=== PATIENT | female | born 1950 | race Caucasian/White ===

== ENCOUNTER 2024-07-11 17:31 | Emergency (ER) | payer MEDICARE, SELFPAY ==
--- NOTE | ~2024-07-11 | CT_ITS ---
CT chest abdomen pelvis w con Ordering provider: Lou Jamil PA-C History: 74 years Female with . fevers unknown origin, hematuria . Comparison: None. Technique: CT chest with IV contrast. CT abdomen and pelvis CT abdomen and pelvis with IV and with or al contrast. Radiation reduction technique utilized The dose-length product was 643.48 mGy-cm. 100 mL Omnipaque 350 was given IV. FINDINGS: CHEST: --VISUALIZED THORACIC INLET: Nodule in the right lobe of the thyroid. Ultrasound evaluation advised. --MEDIASTINUM: Aorta/coronary arteries: Mild atheromatous disease. Heart/other: The heart is slightly enlarged. Lymph nodes: No mediastinal or hilar adenopathy. Multiple small lymph nodes are seen in the mediastin um. --LUNGS: Atelectatic changes in the lung bases. Cough, No pulmonary masses. No infiltrates or effusio ns. No pneumothorax. Tiny nodule is seen in the left lower lobe measuring 3 mm. --MUSCULOSKELETAL: Soft tissues: The superficial soft tissues are normal. Bones: Age appropriate degenerative changes of the spine. No suspicious bony lytic or sclerotic lesio ns. ABDOMEN/PELVIS: --MUSCULOSKELETAL: Bones: Levoscoliosis. Age appropriate degenerative changes of the spine. No suspicious bony lytic or sclerotic lesions. Superficial soft tissues: The superficial soft tissues are normal. --UPPER ABDOMINAL ORGANS: Liver: Normal. Gallbladder: Normal. Spleen: Normal. Stomach/duodenum: Small sliding hiatus hernia. Pancreas: Normal. Adrenals: Nodule in the medial limb of the left adrenal gland. No follow-up is advised unless clinica lly warranted. Kidneys: Tiny cyst in the right kidney upper pole. --PELVIC ORGANS: The bladder is underfilled with slightly thickened wall. No bladder stones. Device is seen in the vagina. Cystic area seen in the right side of the pelvis suggestive of ovarian cyst wh ich measures 2.3 cm. --BOWEL AND MESENTERY: Colon: No evidence of diverticulitis.. Fecal material seen in the colon. Normal appendix. Small Bowel: Normal. No obstruction. Peritoneum/mesentery: No free air or free fluid. No mesenteric lymphadenopathy. Small para-aortic lym ph nodes. --RETROPERITONEUM: Mild atheromatous disease of the abdominal aorta. No retroperitoneal lymphadenop athy. IMPRESSION: CHEST: 1. No acute cardiopulmonary pathology. 2. Nodule in the right lobe of the thyroid. Ultrasound evaluation advised. 3. Tiny nodule in the left lower lobe measuring 3 mm. 6-12 months follow-up advised. ABDOMEN/PELVIS: 1. Small sliding hiatus hernia. 2. Nodule in the right limb of the adrenal gland. No follow-up advised unless clinically warranted. 3. Constipation. Reviewed, dictated and finalized at location A. IMPRESSION: CHEST: 1. No acute cardiopulmonary pathology. 2. Nodule in the right lobe of the thyroid. Ultrasound evaluation advised. 3. Tiny nodule in the left lower lobe measuring 3 mm. 6-12 months follow-up ad vised. ABDOMEN/PELVIS: 1. Small sliding hiatus hernia. 2. Nodule in the right limb of the adrenal gland. No follow-up advised unless clinically warranted. 3. Constipation.
--- NOTE | ~2024-07-11 | CT_ITS ---
CT brain wo con Ordering provider: Lou Jamil PA-C History: 74 years Female with . has, fevers . Comparison: None. Technique: CT of the head without contrast. Radiation reduction technique utilized The dose-length product was 605.33 mGy-cm. FINDINGS: BRAIN PARENCHYMA AND CSF SPACES: Mild leukoaraiosis and diffuse cortical atrophy. Mild atheromatous d isease. No midline shift, mass effect or hemorrhage. The brain parenchyma and CSF spaces are otherwi se normal. VISUALIZED PARANASAL SINUSES: Well aerated. MASTOIDS: Well aerated. BONES: The bones appear intact. Definite C1 posterior arch. SOFT TISSUES: Visualized nasopharynx is normal. Superficial soft tissues are normal. IMPRESSION: No acute intracranial findings. Reviewed, dictated and finalized at location A.
--- NOTE | ~2024-07-11 | CT_ITS ---
CTA brain carotid Ordering provider: Lou Jamil PA-C History: . recent endarterectomy, fever X7d . Comparison: None. Technique: CT angiogram head and neck was performed following timed intravenous injection of contrast . Thin slice axial images and reformatted coronal images were obtained. Three dimensional reformatted images of the brain were also obtained using a [employer] workstation. Radiation reduction technique ut ilized The dose-length product was 966.15 mGy-cm. FINDINGS: HEAD: --ANTERIOR AND MIDDLE CEREBRAL ARTERIES AND BRANCHES: Normal caliber and contour. --INTERNAL CAROTID ARTERIES: Mild atheromatous disease but no significant stenosis. No occlusion. --BASILAR ARTERY AND BRANCHES: Normal caliber and contour. No atheromatous disease. --POSTERIOR CEREBRAL ARTERIES: Normal caliber and contour --POSTERIOR COMMUNICATING ARTERIES: Both visualized and continues as posterior cerebral arteries. --ANEURYSM: Irregularity in the junction of the A1 segment with the M1 segment and the carotid artery is noted on an aneurysm in the area cannot be excluded. Further evaluation with angiography is advis ed. --BRAIN: Please refer to report of CT head performed the same day. --BONES AND SUPERFICIAL SOFT TISSUES: Please refer to report of CT head performed the same day. --PARANASAL SINUSES AND MASTOIDS: Please refer to report of CT head done the same day. NECK: --RIGHT CERVICAL CAROTID SYSTEM: Normal caliber and contour. Percent stenosis per NASCET criteria is 0%. No carotid dissection. Otherwise, no significant atheromatous disease or stenosis of the cervica l carotid system. --LEFT CERVICAL CAROTID SYSTEM: Mild atheromatous disease of the carotid bulb and proximal internal c arotid artery without significant stenosis. Percent stenosis per NASCET criteria is 30%. No carotid dissection. Otherwise, no significant atheromatous disease or stenosis of the cervical carotid system. --VERTEBRAL ARTERIES: Dominant left vertebral artery otherwise, normal Normal caliber and contour. --VISUALIZED AORTIC ARCH AND BRANCHING VESSELS: Mild atheromatous disease but no significant stenosis . --SOFT TISSUES: Bilateral thyroid nodules with enlargement. Ultrasound evaluation advised. --CERVICAL SPINE: Age appropriate degenerative changes. IMPRESSION: 1. Irregularity at the junction of the right carotid artery with the M1 segment and A1 segment which may indicate an aneurysm. Further evaluation advised. 2. CTA neck. Percent stenosis per NASCET criteria is 30% on the left side. 3. Dominant left vertebral artery. Reviewed, dictated and finalized at location A. IMPRESSION: 1. Irregularity at the junction of the right carotid artery with the M1 segmen t and A1 segment which may indicate an aneurysm. Further evaluation advised. 2. CTA neck. Percent stenosis per NASCET criteria is 30% on the left side. 3. Dominant left vertebral artery.
[2024-07-11 17:51] VITALS: BP 146/131; PULSE 95; RESP 14; O2SAT 97
[2024-07-11 17:53] VITALS: BP 152/70; PULSE 97; RESP 20; TEMP 37.4; O2SAT 97
[2024-07-11 18:35] VITALS: BP 152/70; PULSE 92; RESP 16; O2SAT 94
[2024-07-11 18:44] LABS: Basophils Percent Auto 0.4 % (0.2-1.2); Eosinophils Absolute Auto 0.1 K/mm3 (0-0.3); Hemoglobin 12.9 g/dL (12.0-15.0); Immature Granulocyte Absolute 0.03 K/mm3 (0.00-0.031); Immature Granulocyte Percent A 0.4 % (0-0.5); Lymphocytes Absolute Auto 0.92 K/mm3 (0.9-3.2); Mean Corpuscular HGB Conc 32.3 g/dl (32-36); Mean Corpuscular Hemoglobin 28.7 pg (26-34); Mean Corpuscular Volume 89.1 fl (80-100); Mean Platelet Volume 11.5 fl (7.4-10.4); Monocytes Absolute Auto 0.7 K/mm3 (0.1-0.6); Monocytes Percent Auto 8.7 % (2.6-8.5); Neutrophils Absolute Auto 5.9 K/mm3 (1.3-6.7); Neutrophils Percent Auto 77.5 % (45.5-73.1); Platelet Count Result 225 k/mm3 (150-375); Red Blood Count 4.49 M/mm3 (4.2-5.4); Red Cell Distribution Width 14.4 % (11.5-14.5); White Blood Count 7.7 K/mm3 (4.5-10.0)
[2024-07-11 18:55] LABS: Alanine Aminotransferase 31 U/L (6-35); Albumin Level 4.2 g/dL (3.5-5.1); Alkaline Phosphatase 149 U/L (38-126); Anion Gap 8 mmol/L (4-12); Aspartate Amino Transferase 41 U/L (14-36); Bilirubin,Total 0.7 mg/dL (0.2-1.3); Blood Urea Nitrogen 15 mg/dL (7-17); Calcium 9.4 mg/dL (8.4-10.2); Carbon Dioxide 27 mmol/L (22-30); Chloride 103 mmol/L (98-107); Estimated CRCL calculation 39 ml/min; Estimated Glomerular Filt Rate 54; Glucose 98 mg/dL (65-110); Sodium 138 mmol/L (137-145)
[2024-07-11] MEDS: ACETAMINOPHEN 500 MG TABLET 1000 MG PO (18:59)
[2024-07-11] MEDS: SODIUM CHLORIDE 0.9% IV 1,000 ML 999 ML IV CONT (18:59)
[2024-07-11 19:00] VITALS: BP 136/76; PULSE 102; RESP 23; TEMP 37.8; O2SAT 97
[2024-07-11 19:06] LABS: Add Urine Microscopic? YES; Appearance Urine Clear (Clear); Bacteria Urine None Seen /hpf; Bilirubin Urine Negative (Negative); Blood Urine Negative (Negative); Color Urine Yellow (Yellow); Glucose Urine UA Negative (Negative); Ketones Urine 1+ mg/dL (Negative); Leukocyte Esterase Ur Trace LEU/UL (Negative); Need Manual Microscopic Reviewed; Nitrate Urine Negative (Negative); Protein Urine 1+ mg/dL (Negative); Specific Grav Ur 1.026 (1.001-1.035); Squamous Epithelial Cell Urine Occasional /hpf (Few); WBC Urine 0-5 /hpf (0-3); pH Urine 5.5 (5.0-9.0)
[2024-07-11 19:18] LABS: CRP 8.9 mg/dL (<1.0)
[2024-07-11 19:21] LABS: Influenza A QL RT-PCR Negative (Negative); Influenza B QL RT-PCR Negative (Negative); RSV RNA, RT-PCR Negative (Negative); SARS-CoV-2 RNA PCR Negative (Negative)
--- NOTE | 2024-07-11 19:27 | ED_ITS ---
HPI - Fever General Chief Complaint: Fever <SHAHZAD Ramirez Last Filed: 07/12/24 02:39> Stated Complaint: sent by PCP for fevers <SHAHZAD Ramirez Last Filed: 07/12/24 02:39> Time Seen by Provider: 07/11/24 17:57 <SHAHZAD Ramirez Last Filed: 07/12/24 02:39> Source: patient <SHAHZAD Ramirez Last Filed: 07/12/24 02:39> Mode of arrival: ambulatory <SHAHZAD Ramirez Last Filed: 07/12/24 02:39> Limitations: no limitations <SHAHZAD Ramirez Last Filed: 07/12/24 02:39> History of Present Illness HPI Narrative: Patient is a 74-year-old female who presents the ED with report of fever. Patient reports she has been dealing with intermittent fever over the last 7 days, T-max 102? F. She has been seeing her primary care doctor for this and has had fairly extensive workup without a diagnosis. She reports she feels chills and body aches and mild dizziness when the fevers occur, but otherwise feels in her normal state of health. Has been taking ibuprofen mostly for the fevers. Does report intermittent headaches over the last few weeks, but denies having any headache since the fevers have started. Denies cough or cold symptoms, nausea, vomiting, diarrhea, chest pain, shortness of breath, abdominal pain, rashes, wounds, dysuria, gross hematuria. Patient's primary care doctor did recommend that she obtain a CT scan of her abdomen and pelvis to rule out a septic stone given that he had found microscopic blood in her urine of her urine sample in the office. Patient denies any abdominal or back/flank pain. Denies previous history of kidney stones. Also of note, patient had a R carotid endarterectomy on 06/[address] Rashad Tellez at [facility]. <SHAHZAD Ramirez Last Filed: 07/12/24 02:39> Related Data Allergies/Adverse Reactions: Allergies Allergy/AdvReac Type Severity Reaction Status Date / Time No Known Allergies Allergy Verified 07/11/24 17:32 <Lou Jamil PA-C - Last Filed: 07/12/24 02:39> Review of Systems Review of Systems: All systems reviewed & are unremarkable except as noted in HPI. <Lou Jamil PA-C - Last Filed: 07/12/24 02:39> All systems reviewed & are unremarkable except as noted in HPI and below <Lou Jamil PA-C - Last Filed: 07/12/24 02:39> Exam Narrative: GENERAL: Elderly but well appearing, well-nourished, non-toxic, in no acute distress. HEAD: Normocephalic, atraumatic. NECK: Supple, normal ROM, no meningeal signs. Incision to R lateral neck related to recent carotid endarterectomy, glue still in place. No evidence of dehiscence, induration, fluctuance. No drainage or surrounding erythema. RESPIRATORY: Airway patent, respirations nonlabored. Clear to auscultation bilat erally, no rales, rhonchi, wheezing. No focal lungs sounds. CARDIOVASCULAR: Borderline tachycardic with regular rhythm without murmurs, rubs, or gallops. ABDOMINAL: Soft, nontender, nondistended. Normoactive BS. MUSCULOSKELETAL: Moves all extremities. No gross deformities. No peripheral edema. SKIN: Warm, dry, normal color. No rashes or wounds. NEURO: A&O X3. Speech clear. Cranial nerves II-XII grossly intact. Steady gait. No ataxic movements. No focal deficits. PSYCHIATRIC: Appropriate mood and affect. Normal interaction. <Lou Jamil PA-C - Last Filed: 07/12/24 02:39> Course VACATION SALES ADVISOR/PA Physician Supervision Patient's HPI, Exam, and MDM were reviewed and I agreed with the workup and disposition done in the emergency department by the MLP. I was available f or consultation, after speaking with the MLP we did decide to order CT angiography of the head neck given her recent carotid endarterectomy and potential for an infectious process such as Lemmeier's syndrome to be causing her persistent fevers. This was negative and given patient's lack of white co unt or any fever here she was deemed stable for outpatient follow-up. Agree with remaining dictation by MLP. <Derrell Zeng MD - Last Filed: 07/12/24 06:47> Vital Signs Vital signs: Vital Signs Pulse Rate 95 07/11/24 17:51 Respiratory Rate 14 07/11/24 17:51 Blood Pressure 146/131 H 07/11/24 17:51 Pulse Oximetry 97 07/11/24 17:51 Temperature 36.6 C 07/11/24 22:53 Pulse Rate 92 07/11/24 22:53 Respiratory Rate 18 07/11/24 22:53 Blood Pressure 133/65 07/11/24 22:53 Pulse Oximetry 97 07/11/24 22:53 <Lou Jamil PA-C - Last Filed: 07/12/24 02:39> Vital Signs Pulse Rate 95 07/11/24 17:51 Respiratory Rate 14 07/11/24 17:51 Blood Pressure 146/131 H 07/11/24 17:51 Pulse Oximetry 97 07/11/24 17:51 Temperature 36.6 C 07/11/24 22:53 Pulse Rate 92 07/11/24 22:53 Respiratory Rate 18 07/11/24 22:53 Blood Pressure 133/65 07/11/24 22:53 Pulse Oximetry 97 07/11/24 22:53 <Derrell Zeng MD - Last Filed: 07/12/24 06:47> MDM - Fever MDM Narrative Medical decision making narrative: Patient presented to ED with 1 week history of fever, unknown origin. Denies significant associated symptoms. Has had outpatient workup with primary care doctor which has been mostly non revealing aside from a small amount of microscopic hematuria. Sent to the ED for further evaluation and to potentially rule out septic stone. Patient borderline tachycardic, tachypneic, febrile here. Given tylenol/fluids. Otherwise in no acute distress. She does not appear toxic on clinical exam. CBC is without leukocytosis. Stable H&H. CMP is fairly unremarkable. Creatinine appears stable. There is minimal elevation of AST and alk phos. No records to compare to. CRP is elevated to 8.9. ESR also mildly elevated to 53. UA with 1+ ketones, trace leuk esterase, 3-5 RBC. Viral swabs are negative. Barren negative. TSH WNL. Lactic acid is within normal range at 1.0. CT brain negative. CT chest/abdomen /pelvis obtained: CHEST: 1. No acute cardiopulmonary pathology. 2. Nodule in the right lobe of the thyroid. Ultrasound evaluation advised. 3. Tiny nodule in the left lower lobe measuring 3 mm. 6-12 months follow-up advised. ABDOMEN/PELVIS: 1. Small sliding hiatus hernia. 2. Nodule in the right limb of the adrenal gland. No follow-up advised unless clinically warranted. 3. Constipation. Overall workup non-revealing at this time /reassuring. I did discuss workup thus far with patient and at bedside. Patient is aware of thyroid nodule and has had previous workup for this. Will obtain CTA of the head and neck to rule out infection related to recent endarterectomy/ rule out potential Lemierre syndrome. CTA was obtained and does show irregularity at the junction of R ICA at M1A1 segment, potentially an aneurysm. There are no other significant abnormalities noted. No soft tissue abnormalities. No occlusion or thrombus identified to suggest Lemierre's. I did verify this with radiologist, Dr. Jannette Hanley. I did discuss this potential aneurysm finding with patient and advised that she may need further imaging as an outpatient, however this is not the cause of her current fevers. Again overall workup is nonrevealing. I discussed with patient the possibility of viral syndrome and discussed the numerous pa thologies that we have been able to rule out with today's workup. I have extremely low suspicion for intracranial pathology/infection, such as encephalitis or meningitis. Patient is neurologically intact. There are no focal deficits or meningeal signs appreciated on exam. There is no confusion. Again white blood cell count is normal. I discussed LP with patient, however I do not feel this is clinically indicated at this time. Would expect patient to be more acutely ill if this were the case. Patient would prefer to avoid LP. I feel patient is stable for discharge home at this time. She is not meeting sepsis criteria. She feels comfortable going home. I advised patient have extremely close follow-up with PCP for continued management and workup. She was given strict return precautions and voiced understanding of this. Discharged in stable condition. Vital signs stable at time of D/C. <ARMANDO Ramirez - Last Filed: 07/12/24 02:39> Medical Records Attestation: I reviewed the patient's medical records. <Lou Jamil PA-C - Last Filed: 07/12/24 02:39> Lab Data Attestation: I reviewed the patient's lab results. <Lou Jamil PA-C - Last Filed: 07/12/24 02:39> Result diagrams: 07/11/24 18:38 07/11/24 18:38 <Lou Jamil PA-C - Last Filed: 07/12/24 02:39> Labs: Lab Results 07/11/24 07/11/24 07/11/24 Range/Units 18:32 18:37 18:38 WBC 7.7 (4.5-10.0) K/mm3 RBC 4.49 (4.2-5.4) M/mm3 Hgb 12.9 (12.0-15.0) g/dL Hct 40.0 (37.0-47.0) % MCV 89.1 (80-100) fl MCH 28.7 (26-34) pg MCHC 32.3 (32-36) g/dl RDW 14.4 (11.5-14.5) % Plt Count 225 (150-375) k/mm3 MPV 11.5 H (7.4-10.4) fl Immature Gran % (Auto) 0.4 (0-0.5) % Neut % (Auto) 77.5 H (45.5-73.1) % Lymph % (Auto) 12.0 L (18.3-44.2) % Barren % (Auto) 8.7 H (2.6-8.5) % Eos % (Auto) 1.0 (0-4.4) % Baso % (Auto) 0.4 (0.2-1.2) % Lymph # (Auto) 0.92 (0.9-3.2) K/mm3 Barren # (Auto) 0.7 H (0.1-0.6) K/mm3 Eos # (Auto) 0.1 (0-0.3) K/mm3 Baso # (Auto) 0.0 (0.0-0.1) K/mm3 Abs Immat Gran (auto) 0.03 (0.00-0.031) K/mm3 Absolute Neuts (auto) 5.9 (1.3-6.7) K/mm3 Absolute Nucleated RBC 0.000 (0.0-0.012) K/mm3 Nucleated RBC % 0.0 (0.0-0.2) % ESR 53 H (0-20) mm/hr Sodium 138 (137-145) mmol/L Potassium 4.0 (3.4-5.0) mmol/L Chloride 103 (98-107) mmol/L Carbon Dioxide 27 (22-30) mmol/L Anion Gap 8 (4-12) mmol/L BUN 15 (7-17) mg/dL Creatinine 1.00 (0.7-1.0) mg/dL Estim Creat Clear Calc 39 ml/min Estimated GFR 54 L (59 - ) Glucose 98 (65-110) mg/dL Lactic Acid 1.0 (0.7-2.0) mmol/L Calcium 9.4 (8.4-10.2) mg/dL Total Bilirubin 0.7 (0.2-1.3) mg/dL AST 41 H (14-36) U/L ALT 31 (6-35) U/L Alkaline Phosphatase 149 H (38-126) U/L C-Reactive Protein 8.9 H (<1.0) mg/dL Total Protein 8.0 (6.3-8.2) g/dL Albumin 4.2 (3.5-5.1) g/dL TSH (Reflex) 1.100 (0.465-4.68) uIU/mL Urine Color (Yellow) Urine Appearance (Clear) Urine pH (5.0-9.0) Ur Specific [place] (1.001-1.035) Urine Protein (Negative) mg/dL Urine Glucose (UA) (Negative) mg/dL Urine Ketones (Negative) mg/dL Ur Blood (Man) (Negative) Urine Nitrate (Negative) Urine Bilirubin (Negative) Urine Urobilinogen (<2.0) mg/dL Add Ur Microanalysis Leukocyte Esterase Rfl (Negative) DIMITRIS/UL Urine RBC (0-2) /hpf Urine WBC (0-3) /hpf Ur Squamous Epith Cells (Few) /hpf Urine Bacteria /hpf Urine Casts Monoscreen (Negative) Influenza A (RT-PCR) Negative (Negative) Influenza B (RT-PCR) Negative (Negative) RSV (RT-PCR) Negative (Negative) SARS-CoV-2 RNA (RT-PCR) Negative (Negative) 07/11/24 07/11/24 Range/Units 18:41 21:36 WBC (4.5-10.0) K/mm3 RBC (4.2-5.4) M/mm3 Hgb (12.0-15.0) g/dL Hct (37.0-47.0) % MCV (80-100) fl MCH (26-34) pg MCHC (32-36) g/dl RDW (11.5-14.5) % Plt Count (150-375) k/mm3 MPV (7.4-10.4) fl Immature Gran % (Auto) (0-0.5) % Neut % (Auto) (45.5-73.1) % Lymph % (Auto) (18.3-44.2) % Barren % (Auto) (2.6-8.5) % Eos % (Auto) (0-4.4) % Baso % (Auto) (0.2-1.2) % Lymph # (Auto) (0.9-3.2) K/mm3 Barren # (Auto) (0.1-0.6) K/mm3 Eos # (Auto) (0-0.3) K/mm3 Baso # (Auto) (0.0-0.1) K/mm3 Abs Immat Gran (auto) (0.00-0.031) K/mm3 Absolute Neuts (auto) (1.3-6.7) K/mm3 Absolute Nucleated RBC (0.0-0.012) K/mm3 Nucleated RBC % (0.0-0.2) % ESR (0-20) mm/hr Sodium (137-145) mmol/L Potassium (3.4-5.0) mmol/L Chloride (98-107) mmol/L Carbon Dioxide (22-30) mmol/L Anion Gap (4-12) mmol/L BUN (7-17) mg/dL Creatinine (0.7-1.0) mg/dL Estim Creat Clear Calc ml/min Estimated GFR (59 - ) Glucose (65-110) mg/dL Lactic Acid (0.7-2.0) mmol/L Calcium (8.4-10.2) mg/dL Total Bilirubin (0.2-1.3) mg/dL AST (14-36) U/L ALT (6-35) U/L Alkaline Phosphatase (38-126) U/L C-Reactive Protein (<1.0) mg/dL Total Protein (6.3-8.2) g/dL Albumin (3.5-5.1) g/dL TSH (Reflex) (0.465-4.68) uIU/mL Urine Color Yellow (Yellow) Urine Appearance Clear (Clear) Urine pH 5.5 (5.0-9.0) Ur Specific [place] 1.026 (1.001-1.035) Urine Protein 1+ H (Negative) mg/dL Urine Glucose (UA) Negative (Negative) mg/dL Urine Ketones 1+ H (Negative) mg/dL Ur Blood (Man) Negative (Negative) Urine Nitrate Negative (Negative) Urine Bilirubin Negative (Negative) Urine Urobilinogen 1.0 (<2.0) mg/dL Add Ur Microanalysis Reviewed Leukocyte Esterase Rfl Trace H (Negative) DIMITRIS/UL Urine RBC 3-5 H (0-2) /hpf Urine WBC 0-5 (0-3) /hpf Ur Squamous Epith Cells Occasional (Few) /hpf Urine Bacteria None seen /hpf Urine Casts 6-10 Monoscreen Negative (Negative) Influenza A (RT-PCR) (Negative) Influenza B (RT-PCR) (Negative) RSV (RT-PCR) (Negative) SARS-CoV-2 RNA (RT-PCR) (Negative) <Lou Jamil PA-C - Last Filed: 07/12/24 02:39> Lab Results 07/11/24 07/11/24 07/11/24 Range/Units 18:32 18:37 18:38 WBC 7.7 (4.5-10.0) K/mm3 RBC 4.49 (4.2-5.4) M/mm3 Hgb 12.9 (12.0-15.0) g/dL Hct 40.0 (37.0-47.0) % MCV 89.1 (80-100) fl MCH 28.7 (26-34) pg MCHC 32.3 (32-36) g/dl RDW 14.4 (11.5-14.5) % Plt Count 225 (150-375) k/mm3 MPV 11.5 H (7.4-10.4) fl Immature Gran % (Auto) 0.4 (0-0.5) % Neut % (Auto) 77.5 H (45.5-73.1) % Lymph % (Auto) 12.0 L (18.3-44.2) % Barren % (Auto) 8.7 H (2.6-8.5) % Eos % (Auto) 1.0 (0-4.4) % Baso % (Auto) 0.4 (0.2-1.2) % Lymph # (Auto) 0.92 (0.9-3.2) K/mm3 Barren # (Auto) 0.7 H (0.1-0.6) K/mm3 Eos # (Auto) 0.1 (0-0.3) K/mm3 Baso # (Auto) 0.0 (0.0-0.1) K/mm3 Abs Immat Gran (auto) 0.03 (0.00-0.031) K/mm3 Absolute Neuts (auto) 5.9 (1.3-6.7) K/mm3 Absolute Nucleated RBC 0.000 (0.0-0.012) K/mm3 Nucleated RBC % 0.0 (0.0-0.2) % ESR 53 H (0-20) mm/hr Sodium 138 (137-145) mmol/L Potassium 4.0 (3.4-5.0) mmol/L Chloride 103 (98-107) mmol/L Carbon Dioxide 27 (22-30) mmol/L Anion Gap 8 (4-12) mmol/L BUN 15 (7-17) mg/dL Creatinine 1.00 (0.7-1.0) mg/dL Estim Creat Clear Calc 39 ml/min Estimated GFR 54 L (59 - ) Glucose 98 (65-110) mg/dL Lactic Acid 1.0 (0.7-2.0) mmol/L Calcium 9.4 (8.4-10.2) mg/dL Total Bilirubin 0.7 (0.2-1.3) mg/dL AST 41 H (14-36) U/L ALT 31 (6-35) U/L Alkaline Phosphatase 149 H (38-126) U/L C-Reactive Protein 8.9 H (<1.0) mg/dL Total Protein 8.0 (6.3-8.2) g/dL Albumin 4.2 (3.5-5.1) g/dL TSH (Reflex) 1.100 (0.465-4.68) uIU/mL Urine Color (Yellow) Urine Appearance (Clear) Urine pH (5.0-9.0) Ur Specific [place] (1.001-1.035) Urine Protein (Negative) mg/dL Urine Glucose (UA) (Negative) mg/dL Urine Ketones (Negative) mg/dL Ur Blood (Man) (Negative) Urine Nitrate (Negative) Urine Bilirubin (Negative) Urine Urobilinogen (<2.0) mg/dL Add Ur Microanalysis Leukocyte Esterase Rfl (Negative) DIMITRIS/UL Urine RBC (0-2) /hpf Urine WBC (0-3) /hpf Ur Squamous Epith Cells (Few) /hpf Urine Bacteria /hpf Urine Casts Monoscreen (Negative) Influenza A (RT-PCR) Negative (Negative) Influenza B (RT-PCR) Negative (Negative) RSV (RT-PCR) Negative (Negative) SARS-CoV-2 RNA (RT-PCR) Negative (Negative) 07/11/24 07/11/24 Range/Units 18:41 21:36 WBC (4.5-10.0) K/mm3 RBC (4.2-5.4) M/mm3 Hgb (12.0-15.0) g/dL Hct (37.0-47.0) % MCV (80-100) fl MCH (26-34) pg MCHC (32-36) g/dl RDW (11.5-14.5) % Plt Count (150-375) k/mm3 MPV (7.4-10.4) fl Immature Gran % (Auto) (0-0.5) % Neut % (Auto) (45.5-73.1) % Lymph % (Auto) (18.3-44.2) % Barren % (Auto) (2.6-8.5) % Eos % (Auto) (0-4.4) % Baso % (Auto) (0.2-1.2) % Lymph # (Auto) (0.9-3.2) K/mm3 Barren # (Auto) (0.1-0.6) K/mm3 Eos # (Auto) (0-0.3) K/mm3 Baso # (Auto) (0.0-0.1) K/mm3 Abs Immat Gran (auto) (0.00-0.031) K/mm3 Absolute Neuts (auto) (1.3-6.7) K/mm3 Absolute Nucleated RBC (0.0-0.012) K/mm3 Nucleated RBC % (0.0-0.2) % ESR (0-20) mm/hr Sodium (137-145) mmol/L Potassium (3.4-5.0) mmol/L Chloride (98-107) mmol/L Carbon Dioxide (22-30) mmol/L Anion Gap (4-12) mmol/L BUN (7-17) mg/dL Creatinine (0.7-1.0) mg/dL Estim Creat Clear Calc ml/min Estimated GFR (59 - ) Glucose (65-110) mg/dL Lactic Acid (0.7-2.0) mmol/L Calcium (8.4-10.2) mg/dL Total Bilirubin (0.2-1.3) mg/dL AST (14-36) U/L ALT (6-35) U/L Alkaline Phosphatase (38-126) U/L C-Reactive Protein (<1.0) mg/dL Total Protein (6.3-8.2) g/dL Albumin (3.5-5.1) g/dL TSH (Reflex) (0.465-4.68) uIU/mL Urine Color Yellow (Yellow) Urine Appearance Clear (Clear) Urine pH 5.5 (5.0-9.0) Ur Specific [place] 1.026 (1.001-1.035) Urine Protein 1+ H (Negative) mg/dL Urine Glucose (UA) Negative (Negative) mg/dL Urine Ketones 1+ H (Negative) mg/dL Ur Blood (Man) Negative (Negative) Urine Nitrate Negative (Negative) Urine Bilirubin Negative (Negative) Urine Urobilinogen 1.0 (<2.0) mg/dL Add Ur Microanalysis Reviewed Leukocyte Esterase Rfl Trace H (Negative) DIMITRIS/UL Urine RBC 3-5 H (0-2) /hpf Urine WBC 0-5 (0-3) /hpf Ur Squamous Epith Cells Occasional (Few) /hpf Urine Bacteria None seen /hpf Urine Casts 6-10 Monoscreen Negative (Negative) Influenza A (RT-PCR) (Negative) Influenza B (RT-PCR) (Negative) RSV (RT-PCR) (Negative) SARS-CoV-2 RNA (RT-PCR) (Negative) <Derrell Zeng MD - Last Filed: 07/12/24 06:47> Imaging Data Attestation: I personally reviewed and interpreted this imaging study as follows: <Lou Jamil PA-C - Last Filed: 07/12/24 02:39> Radiologist's impression: ITS Impressions Head CT 07/11/24 19:41 IMPRESSION: No acute intracranial findings. Chest/Abdomen/Pelvis CT 07/11/24 20:38 IMPRESSION: CHEST: 1. No acute cardiopulmonary pathology. 2. Nodule in the right lobe of the thyroid. Ultrasound evaluation advised. 3. Tiny nodule in the left lower lobe measuring 3 mm. 6-12 months follow-up advised. ABDOMEN/PELVIS: 1. Small sliding hiatus hernia. 2. Nodule in the right limb of the adrenal gland. No follow-up advised unless clinically warranted. 3. Constipation. Head/Neck CTA 07/11/24 22:24 IMPRESSION: 1. Irregularity at the junction of the right carotid artery with the M1 segment and A1 segment which may indicate an aneurysm. Further evaluation advised. 2. CTA neck. Percent stenosis per NASCET criteria is 30% on the left side. 3. Dominant left vertebral artery. <SHAHZAD Ramirez Last Filed: 07/12/24 02:39> Discharge Plan Discharge Clinical Impression: Fever of unknown origin <SHAHZAD Ramirez Last Filed: 07/12/24 02:39> Patient Disposition: Home, Self-Care <SHAHZAD Ramirez Last Filed: 07/12/24 02:39> Condition: Stable <SHAHZAD Ramirez Last Filed: 07/12/24 02:39> Instructions: Antibiotic Form, Fever in Adults (ED), Viral Syndrome (ED) <SHAHZAD Ramirez Last Filed: 07/12/24 02:39> Additional Instructions: Your workup here was reassuring. Your labs and imaging did not show any significant abnormalities to explain the fevers. Continue Tylenol and ibuprofen as needed for fevers. Follow closely with your primary care doctor to ensure improvement/resolution of symptoms. Return to the ED if you experience worsening or severe symptoms, unable to control fever despite medications, confusion, severe headaches, severe pain, unable to keep down food or drink, neck pain, or any other symptoms of concern. <Lou Jamil PA-C - Last Filed: 07/12/24 02:39> Follow-up/Referrals: UNKNOWN,DOCTOR [Primary Care Provider] - <Lou Jamil PA-C - Last Filed: 07/12/24 02:39> Time of Disposition: 23:17 <Lou Jamil PA-C - Last Filed: 07/12/24 02:39> 23:17 <Derrell Zeng MD - Last Filed: 07/12/24 06:47>
[2024-07-11 20:02] LABS: Erythrocyte Sedimentation Rate 53 mm/hr (0-20)
[2024-07-11 21:54] LABS: Monoscreen Negative (Negative); Negative Monotest Control Negative (Negative); Positive Monotest Control Positive (Positive)
[2024-07-11 22:45] VITALS: RESP 18; O2SAT 98
[2024-07-11 22:53] VITALS: BP 133/65; PULSE 92; RESP 18; TEMP 36.6; O2SAT 97
== END 2024-07-11 23:46 | disposition home or self-care (01) ==
PROVIDERS: Emergency Provider Physician Assistant
DX: R50.9 Fever, unspecified (principal); Z20.822 Contact with and (suspected) exposure to COVID-19; I65.22 Occlusion and stenosis of left carotid artery; E04.1 Nontoxic single thyroid nodule; R91.1 Solitary pulmonary nodule; K44.9 Diaphragmatic hernia without obstruction or gangrene; K59.00 Constipation, unspecified; R93.89 Abnormal findings on diagnostic imaging of other specified body structures
CPT/HCPCS: 36415; 70450; 70496; 70498; 71260; 74177; 80053; 81001; 83605; 84443; 85025; 85652; 86140; 86308; 87040; 87637; 96360; 99284; A9270; J7030; Q9967